=== PATIENT | male | born 1995 | race Asian ===

== ENCOUNTER 2017-11-03 17:28 | Emergency (ER) | payer MEDICAID ==
[~2017-11-03] VITALS: Ht 167.6 cm; Wt 98.0 kg
[2017-11-03] MEDS ORDERED: KETOROLAC 60MG/2ML VIAL IM ONE (19:15)
[2017-11-03 21:45] VITALS: BP 146/70
== END 2017-11-03 21:51 | disposition home or self-care (01) ==
LOC: ER 17:28
DX: S82.091A Other fracture of right patella, initial encounter for closed fracture (principal); X58.XXXA Exposure to other specified factors, initial encounter; Y93.61 Activity, american tackle football; Y92.89 Other specified places as the place of occurrence of the external cause
CPT/HCPCS: 73562; 96372; 99284; J1885; L1830; Z7610

== ENCOUNTER 2018-03-19 20:53 | Emergency (ER) | payer MEDICAID ==
[~2018-03-19] VITALS: Ht 177.8 cm; Wt 113.0 kg
[2018-03-20 01:33] VITALS: BP 140/68
== END 2018-03-20 01:34 | disposition home or self-care (01) ==
LOC: ER 20:53
DX: R07.89 Other chest pain (principal); R03.0 Elevated blood-pressure reading, without diagnosis of hypertension; W50.0XXA Accidental hit or strike by another person, initial encounter; Y93.61 Activity, american tackle football; Y92.39 Other specified sports and athletic area as the place of occurrence of the external cause; R94.31 Abnormal electrocardiogram [ECG] [EKG]
CPT/HCPCS: 71045; 93005; 99284

== ENCOUNTER 2020-10-25 08:34 | Emergency (ER) | payer MEDICAID ==
[~2020-10-25] VITALS: Ht 180.3 cm; Wt 105.0 kg
[2020-10-25 09:40] LABS: BASOPHILS % 0.4 % (0.0-2.0); HEMATOCRIT. 48.5 % (42.0-52.0); HEMOGLOBIN. 16.7 g/dL (14.0-18.0); MEAN CORPUSCULAR HEMOGLOBIN 31.3 pg (28.0-32.0); MEAN CORPUSCULAR VOLUME 91.1 fL (80.0-94.0); MONOCYTES % 7.6 % (2.0-8.0); PLATELET 286 x1000/uL (130-400); RED BLOOD CELL COUNT 5.33 mill/uL (4.7-6.1); RED CELL DISTRIBUTION WIDTH 12.5 % (11.6-14.6)
[2020-10-25 09:47] LABS: CHLORIDE 106 mEq/L (98-107)
[2020-10-25 10:03] LABS: CLARITY URINE CLOUDY (CLEAR); COLOR URINE DK YELLOW (YELLOW); KETONES URINE NEGATIVE (NEGATIVE); LEUKOCYTE ESTERASE URINE NEGATIVE (NEGATIVE); NITRITE URINE NEGATIVE (NEGATIVE); OCCULT BLOOD URINE 1+ (NEGATIVE); PH URINE 5.5 (4.5-8.0); PROTEIN URINE 2+ (NEGATIVE); SPECIFIC GRAVITY URINE 1.027 (1.005-1.030)
[2020-10-25 10:09] LABS: *AMPHETAMINES SCREEN URINE NEGATIVE (NEGATIVE); *BARBITURATES SCREEN URINE NEGATIVE (NEGATIVE)
[2020-10-25 10:10] LABS: *BENZODIAZEPINES SCREEN URINE NEGATIVE (NEGATIVE); *COCAINE SCREEN URINE NEGATIVE (NEGATIVE); CANNABINOID URINE SCREEN PRESUMTIVE POSITIVE (NEGATIVE); METHADONE URINE SCREEN NEGATIVE (NEGATIVE); OPIATES URINE SCREEN NEGATIVE (NEGATIVE); PHENCYCLIDINE URINE SCREEN NEGATIVE (NEGATIVE)
[2020-10-25] MEDS ORDERED: LIDOCAINE HCL/PF 1% 10 MG/ML 5ML VIAL IJ ONE (10:45)
[2020-10-25] MEDS ORDERED: IBUP-2029 MT (12:10)
[2020-10-25 12:28] VITALS: BP 128/68
== END 2020-10-25 12:30 | disposition home or self-care (01) ==
LOC: ER 08:34
DX: S05.12XA Contusion of eyeball and orbital tissues, left eye, initial encounter (principal); F12.10 Cannabis abuse, uncomplicated; I49.9 Cardiac arrhythmia, unspecified; Y08.89XA Assault by other specified means, initial encounter; Y93.89 Activity, other specified; Y92.89 Other specified places as the place of occurrence of the external cause; Y99.8 Other external cause status
CPT/HCPCS: 12001; 36415; 70450; 70486; 72100; 72125; 73080; 80053; 80305; 81003; 85025; 93005; 99285; A4217; J3490; Z7610